=== PATIENT | male | born 1955 | race Caucasian/White ===

== ENCOUNTER 2024-08-01 12:28 | Inpatient (IN) ==
[2024-08-01] MEDS ORDERED: IOPAMIDOL 100 ML BOTTLE IV ONE (12:29)
[2024-08-01 13:59] LABS: Basophils # (Auto) 0.03 K/mcL (0.00-0.30); Basophils % (Auto) 0.1 % (0.0-2.0); Eosinophils # (Auto) 0.03 K/mcL (0.00-0.70); Eosinophils % (Auto) 0.1 % (0.0-7.0); Hematocrit 48.6 % (40.1-51.0); Hemoglobin 15.3 g/dL (13.7-17.5); Lymphocytes # (Auto) 0.51 K/mcL (1.50-4.80); Lymphocytes % (Auto) 2.1 % (15.5-49.0); Mean Cell Volume 85.3 fL (80.0-100.0); Mean Corpuscular HGB Conc 31.5 g/dL (31.0-36.0); Mean Platelet Volume 10.7 fL (8.8-12.5); Monocytes # (Auto) 0.81 K/mcL (0.10-0.90); Monocytes % (Auto) 3.3 % (1.0-12.0); Neutrophils % (Auto) 93.8 % (38.0-78.0); Platelet Count 193 K/mcL (140-440); Red Cell Distribution Width 14.3 % (11.5-14.5); WBC 24.8 K/mcL (4.5-11.0)
[2024-08-01 14:05] LABS: Prothrombin Time 13.8 sec (11.9-14.5)
[2024-08-01 14:16] LABS: ALT/SGPT 42 U/L (<40); AST/SGOT 30 U/L (<40); Albumin/Globulin Ratio 1.3 (1.0-2.3); Alkaline Phosphatase 105 U/L (39-117); Bilirubin,Total 0.9 mg/dL (0.1-1.0); Blood Urea Nitrogen 14 mg/dL (8-23); Calcium 9.2 mg/dL (8.6-10.4); Carbon Dioxide 23 mmol/L (22-30); Chloride 98 mmol/L (96-108); Globulin 3.2 gm/dL (2.2-3.7); Glomerular Filtration Rate 86; Glucose 356 mg/dL (70-105); Potassium 4.1 mmol/L (3.3-5.1); Sodium 136 mmol/L (133-145)
[2024-08-01] MEDS: cefTRIAXone 2 GM in DEXTROSE 5% IN WATER 50 ML IV ONE (14:35)
[2024-08-01 14:53] LABS: Appearance,Urine Clear (Clear); Bacteria,Urine Many /hpf (0); Bilirubin,Urine Negative (Negative); Color,Urine Yellow; Glucose,Urine (UA) 500 mg/dL (Negative); Ketones,Urine 40 mg/dL (Negative); Leukocyte Esterase,Urine Negative /uL (Negative); Nitrate,Urine Negative (Negative); Protein,Urine 30 mg/dL (Negative); Urine Blood Negative ery/mcL (Negative); Urine Budding Yeast Moderate /hpf; Urine RBC 1 /hpf (0-3); Urine Squamous Epithelial Cell 3 /hpf (0-4); Urine WBC 2 /hpf (0-4); Urobilinogen,Urine Normal
[2024-08-01] MEDS: CEFEPIME 2 GM VIAL IV ONE (15:02)
[2024-08-01] MEDS: VANCOMYCIN 2,000 MG in 0.9 % SODIUM CHLORIDE 500 ML IV ONE ×2 (15:18→15:19)
[2024-08-01] MEDS ORDERED: VANCOMYCIN PER PHARMACY IV SCH (18:01)
[2024-08-01] MEDS ORDERED: MAGNESIUM SULFATE 2 GM/50 ML BAG IV PRN (18:01)
[2024-08-01] MEDS ORDERED: ONDANSETRON 4 MG/2 ML VIAL IV PRN (18:01)
[2024-08-01] MEDS ORDERED: METOCLOPRAMIDE 10 MG/2 ML VIAL IV PRN (18:01)
[2024-08-01] MEDS ORDERED: DEXTROSE 31 GM ORAL.SUSP PO PRN (18:01)
[2024-08-01] MEDS ORDERED: DEXTROSE 50% 50 ML VIAL IV PRN (18:01)
[2024-08-01] MEDS ORDERED: POLYETHYLENE GLYCOL 3350 17 GM PACKET PO PRN (18:01)
[2024-08-01] MEDS ORDERED: IPRATROPIUM/ALBUTEROL 3 ML AMPUL.NEB NEB PRN (18:01)
[2024-08-01] MEDS ORDERED: POTASSIUM CHLORIDE 20 MEQ TABLET PO PRN ×2 (18:01)
[2024-08-01] MEDS ORDERED: SENNOSIDES 1 TABLET PO PRN (18:01)
[2024-08-01] MEDS ORDERED: POTASSIUM CHLORIDE 40 MEQ in DEXTROSE 5% IN WATER 500 ML IV PRN (18:01)
[2024-08-01] MEDS ORDERED: hydrALAZINE 20 MG/ML VIAL IV PRN (18:01)
[2024-08-01] MEDS ORDERED: LABETALOL HCL 20 MG/4 ML VIAL IV PRN (18:01)
[2024-08-01] MEDS: INSULIN LISPRO 1 UNIT/0.01 ML UNIT SQ SCH (18:31)
[2024-08-01] MEDS: INSULIN GLARGINE, HUMAN 1 UNIT/0.01 ML SQ SCH (18:31)
[2024-08-01] MEDS: cefTRIAXone 1 GM VIAL ONE (19:19)
[2024-08-01] MEDS: cefTRIAXone 2 GM in DEXTROSE 5% IN WATER 50 ML IV SCH (19:19)
[2024-08-01] MEDS: CLINDAMYCIN IN 0.9 % SOD CHLOR 600 MG/50 ML BAG IV SCH (21:23)
[2024-08-01] MEDS: DOCUSATE SODIUM 100 MG CAPSULE PO SCH (21:24)
[2024-08-01] MEDS: ENOXAPARIN 40 MG/0.4 ML SYRINGE SQ SCH (21:24)
[2024-08-01] MEDS: 0.9 % SODIUM CHLORIDE 10 ML SYRINGE IV SCH (21:24)
[2024-08-01] MEDS: GABAPENTIN 300 MG CAPSULE ONE (23:53)
[2024-08-01] MEDS: MIRABEGRON 50 MG PO SCH (23:54)
[2024-08-02] MEDS: GABAPENTIN 300 MG CAPSULE PO SCH (00:05)
[2024-08-02] MEDS: CARBIDOPA/LEVODOPA CR 25/100 TABLET PO SCH (00:05)
[2024-08-02] MEDS: PRAMIPEXOLE 1 MG TABLET PO SCH (00:06)
[2024-08-02 06:28] LABS: ALT/SGPT 6 U/L (<40); AST/SGOT 24 U/L (<40); Albumin 3.7 gm/dL (3.2-5.2); Albumin/Globulin Ratio 1.2 (1.0-2.3); Alkaline Phosphatase 121 U/L (39-117); Bilirubin,Direct 0.3 mg/dL (<0.3); Bilirubin,Total 0.7 mg/dL (0.1-1.0); Blood Urea Nitrogen 18 mg/dL (8-23); Calcium 9.1 mg/dL (8.6-10.4); Carbon Dioxide 25 mmol/L (22-30); Chloride 102 mmol/L (96-108); Globulin 3.1 gm/dL (2.2-3.7); Glomerular Filtration Rate 86; Glucose 218 mg/dL (70-105); Lactate Dehydrogenase 189 U/L (135-225); Phosphorous 2.3 mg/dL (2.5-4.5); Potassium 4.2 mmol/L (3.3-5.1); Sodium 140 mmol/L (133-145); Triglycerides 165 mg/dL (<150); Uric Acid 4.6 mg/dL (2.5-8.0)
[2024-08-02 07:57] LABS: Basophils # (Auto) 0.05 K/mcL (0.00-0.30); Basophils % (Auto) 0.3 % (0.0-2.0); Eosinophils # (Auto) 0.05 K/mcL (0.00-0.70); Eosinophils % (Auto) 0.3 % (0.0-7.0); Hematocrit 46.9 % (40.1-51.0); Hemoglobin 14.6 g/dL (13.7-17.5); Lymphocytes # (Auto) 1.52 K/mcL (1.50-4.80); Lymphocytes % (Auto) 7.8 % (15.5-49.0); Mean Corpuscular HGB Conc 31.1 g/dL (31.0-36.0); Monocytes # (Auto) 1.49 K/mcL (0.10-0.90); Monocytes % (Auto) 7.7 % (1.0-12.0); Neutrophils % (Auto) 83.1 % (38.0-78.0); Platelet Count 167 K/mcL (140-440); RBC 5.33 M/mcL (4.63-6.08); Red Cell Distribution Width 14.8 % (11.5-14.5); WBC 19.4 K/mcL (4.5-11.0)
[2024-08-02] MEDS ORDERED: VANCOMYCIN 1,500 MG in 0.9 % SODIUM CHLORIDE 500 ML IV SCH (09:00)
[2024-08-02] MEDS: ACETAMINOPHEN 325 MG TABLET PO PRN (09:03)
[2024-08-02] MEDS: ASPIRIN 81 MG TAB.CHEW PO SCH (09:04)
[2024-08-02] MEDS: LISINOPRIL 5 MG TABLET PO SCH (09:04)
[2024-08-02] MEDS: FUROSEMIDE 40 MG TABLET PO SCH (09:04)
[2024-08-02] MEDS: BISOPROLOL 5 MG TABLET PO SCH (09:04)
[2024-08-02] MEDS: ATORVASTATIN 40 MG TABLET PO SCH (09:04)
[2024-08-02] MEDS: Mirabegron 50 mg tablet extended release 24 hr PO SCH (09:47)
[2024-08-02] MEDS: FUROSEMIDE 20 MG/2 ML VIAL IV SCH (11:25)
[2024-08-03 06:13] LABS: Basophils # (Auto) 0.02 K/mcL (0.00-0.30); Basophils % (Auto) 0.2 % (0.0-2.0); Lymphocytes # (Auto) 0.99 K/mcL (1.50-4.80); Lymphocytes % (Auto) 10.1 % (15.5-49.0); Mean Cell Volume 87.9 fL (80.0-100.0); Mean Platelet Volume 10.4 fL (8.8-12.5); Monocytes # (Auto) 0.98 K/mcL (0.10-0.90); Neutrophils % (Auto) 78.5 % (38.0-78.0); Platelet Count 149 K/mcL (140-440); RBC 4.78 M/mcL (4.63-6.08); Red Cell Distribution Width 14.6 % (11.5-14.5); WBC 9.8 K/mcL (4.5-11.0)
[2024-08-03 06:37] LABS: ALT/SGPT 7 U/L (<40); AST/SGOT 32 U/L (<40); Alkaline Phosphatase 85 U/L (39-117); Bilirubin,Direct < 0.2 mg/dL (0-0.3); Bilirubin,Total 0.4 mg/dL (0.1-1.0); Blood Urea Nitrogen 21 mg/dL (8-23); Calcium 8.3 mg/dL (8.6-10.4); Carbon Dioxide 20 mmol/L (22-30); Chloride 103 mmol/L (96-108); Glomerular Filtration Rate 86; Glucose 248 mg/dL (70-105); Lactate Dehydrogenase 231 U/L (135-225); Phosphorous 2.7 mg/dL (2.5-4.5); Potassium 4.2 mmol/L (3.3-5.1); Sodium 135 mmol/L (133-145); Triglycerides 192 mg/dL (<150); Uric Acid 5.1 mg/dL (2.5-8.0)
[2024-08-03] MEDS: INSULIN GLARGINE, HUMAN 1 UNIT/0.01 ML SQ SCH (09:13)
[2024-08-03] MEDS: INSULIN GLARGINE, HUMAN 1 UNIT/0.01 ML SQ ONE (09:27)
[2024-08-03] MEDS: FUROSEMIDE 40 MG/4 ML VIAL IV ONE (10:11)
[2024-08-03] MEDS: ALBUMIN HUMAN 12.5 GM/50 ML VIAL IV ONE (10:11)
[2024-08-04 07:24] VITALS: TEMP 97.1; O2SAT 94
== END 2024-08-04 12:00 | DRG 872 ==
LOC: ED 12:28 → MEDSUR 17:55
PROVIDERS: ADMIT Internal Medicine; ATTEND Internal Medicine